=== PATIENT | male | born 1990 | race Asian ===

== ENCOUNTER 2019-07-10 12:33 | Emergency (ER) | payer OTHER ==
[2019-07-10] MEDS ORDERED: Fluorescein Sodium TOPICAL* 1 MG TEST STRIP OPHTHALMIC ONE (14:26)
--- NOTE | 2019-07-10 14:26 | ED ---
Throat Pain/Nasal Congestion - HPI Summary HPI Summary: Patient is a 29-year-old male who presents emergency department for evaluation of a left eye injury that occurred on Thursday, 3 days ago. Pt. states he accidentally poked his left eye with his finger 3 days ago. Pt. states since he has noticed a dark spot on his eye. Pt. also states he noticed what he describes as "shadowing" to the his right vision field of left eye. Does not wear contacts. Sxs are mild-moderate in severity. No current modifying factors. - History of Current Complaint Chief Complaint: EDEyeProblem Time Seen by Provider: 07/10/19 14:25 Hx Obtained From: Patient - Allergies/Home Medications Allergies/Adverse Reactions: Allergies Allergy/AdvReac Type Severity Reaction Status Date / Time No Known Allergies Allergy Verified 07/10/19 12:37 Home Medications: Home Medications NK [No Home Medications Reported] 07/10/19 [History Confirmed 07/10/19] PMH/Surg Hx/FS Hx/Imm Hx Previously Healthy: Yes Infectious Disease History: No Infectious Disease History: Denies: Traveled Outside the [place] in Last 30 Days - Family History Known Family History: Positive: Non-Contributory - Social History Occupation: Student Lives: Dormitory/Roommates Alcohol Use: None Substance Use Type: Reports: None Smoking Status (MU): Never Smoked Tobacco Review of Systems Constitutional: Negative Positive: Other - shadowing in vision on left Neurological: Negative All Other Systems Reviewed And Are Negative: Yes Physical Exam Triage Information Reviewed: Yes Vital Signs On Initial Exam: Initial Vitals Temp Pulse Resp BP Pulse Ox 98.4 F 85 16 134/98 98 07/10/19 12:35 07/10/19 12:35 07/10/19 12:35 07/10/19 12:35 07/10/19 12:35 Vital Signs Reviewed: Yes Appearance: Positive: Well-Appearing - Pt. sitting on chair in NAD. SO present. Skin: Positive: Warm, Dry Head/Face: Positive: Normal Head/Face Inspection Eyes: Positive: Other: - Right eye unremarkable. Small subconjuctiva hemorrhage to the left lower medial eye. Anterior chamber is clear. EOMI. Peripheral vision intact. Neck: Positive: Supple Neurological: Positive: Normal, CN Intact II-III Psychiatric: Positive: Affect/Mood Appropriate Diagnostics - Vital Signs Vital Signs Temp Pulse Resp BP Pulse Ox 07/10/19 12:35 98.4 F 85 16 134/98 98 - Laboratory Lab Statement: Any lab studies that have been ordered have been reviewed, and results considered in the medical decision making process. EENT Course/Dx - Course Course Of Treatment: Patient presenting with the above complaints. On exam he has a very small subconjunctival hemorrhage. Patient complains of "shadowing" to his left eye on his right visual field. Visual acuity as documented. Case was discussed with Dr. Hunt who feels patient is discharged to follow-up with ophthalmology tomorrow for further evaluation. Patient is comfortable with this plan. He'll return to the ER sooner if symptoms change or worsen. - Diagnoses Provider Diagnoses: Subconjunctival hemorrhage, Eye injury Discharge ED - Sign-Out/Discharge Documenting (check all that apply): Patient Departure Patient Received Moderate/Deep Sedation with Procedure: No - Discharge Plan Condition: Good Disposition: HOME Patient Education Materials: Subconjunctival Hemorrhage (ED) Referrals: [facility] - Rainer HOANG [Primary Care Provider] - David Roque MD [Medical Doctor] - Additional Instructions: Please call Dr. Roque's office tomorrow morning for a follow up appointment within 1-2 days Return to ER sooner if symptoms change or worsen - Billing Disposition and Condition Condition: GOOD Disposition: Home
[2019-07-10 15:36] VITALS: BP 132/78
== END 2019-07-10 15:33 | disposition home or self-care (01) ==
LOC: ED 12:33
DX: H11.32 Conjunctival hemorrhage, left eye (principal); S05.92XA Unspecified injury of left eye and orbit, initial encounter; W22.8XXA Striking against or struck by other objects, initial encounter; Y92.9 Unspecified place or not applicable
CPT/HCPCS: 99282; A9270-GY